=== PATIENT | female | born 1985 ===

== ENCOUNTER 2020-08-01 10:37 | Emergency (ER) | payer SELFPAY ==
--- NOTE | 2020-08-01 10:33 | ED.GENADUL_ITS ---
Discharge Plan Discharge Details ED Provider: Paulina Pacheco [facility] Social History Smoking risk assessment performed?: No
--- NOTE | 2020-08-01 10:33 | W.ED.GENAD ---
Discharge Plan Discharge Details ED Provider: Paulina Pacheco [facility] Social History Smoking risk assessment performed?: No
--- NOTE | 2020-08-01 10:49 | NUR.NOTE ---
Nursing Note: Asked [facility] uniform patrol police officer if the name Deshawn Franklin was the correct one for the patient as she arrived. He stated no, that was an alias that her correct name was Shadia Suarez. This name was removed from the tracker and the correct name was put on the tracker. Vanita Fernandez
== END 2020-08-01 10:39 | disposition other institution (70) ==
LOC: ER 10:54
PROVIDERS: Emergency Provider Physician Assistant
DX: R69 Illness, unspecified (principal)